=== PATIENT | male | born 1970 | race Caucasian/White ===

== ENCOUNTER 2025-01-11 13:56 | Inpatient (IN) | payer MEDICAID, OTHER ==
[~2025-01-11] VITALS: Ht 157.5 cm; Wt 88.9 kg
--- NOTE | 2025-01-11 14:39 | ED.PDOC ---
General HPI Comments Vitals Temperature: Respiratory rate: SpO2: Heart rate: Blood pressure: Past Medical History: Negative Past Surgical History: Negative Social History: Negative Estuardo: r abd, r flank n/v HPI: Poor Historian. REVIEW OF SYSTEMS: CONSTITUTIONAL: Denies acute: fever, diaphoresis, chills, generalized weakness. HEAD: Denies acute: headache, photophobia Eyes: Denies acute: Double vision, vision loss, eye pain, eye discharge. EARS: Denies acute: tinnitus, hearing loss, ear discharge, ear pain, THROAT: Denies acute: sore throat, swelling, difficulty swallowing , pain with swallowing, change in voice. NECK: Denies acute: neck pain, neck swelling, stiff neck. HEART: Denies acute : chest pain, palpitations, LUNGS: Denies acute: SOB, wheezing, cough, hemoptysis ABDOMEN: Denies acute: diarrhea, melena , hematemesis, hematochezia SKIN: Denies acute: rash, redness, lesions, itchiness. EXTREMITIES: Denies acute: calf pain, numbness, tingling, weakness, denies pain in extremity. Denies acute: Low back pain. Neuro: Denies acute: focal neurological deficit, motor or sensory focal neurological deficit, tremors, seizure like activity, confusion, dizziness, change in mental status, loss of bowel or bladder function, cauda equina like symptoms. : Denies acute: dysuria, hematuria, increase in urinary frequency. PSYCH: Denies acute: hallucination, suicidal ideation, homicidal ideation. PHYSICAL EXAM: General: ----moderate to severe----acute distress, awake and alert. Head: normocephalic, atraumatic. Neck: supple, trachea is midline, no swelling. Throat: Normal phonation. Eyes:, no erythema, no purulent discharge, no proptosis, no icterus. Heart: regular rate, regular rhythm, no significant murmur appreciated. Lungs: no apparent respiratory distress, Able to speak in full sentences. No wheezing, no rhonchi, no crackles. No stridors Clear to auscultation bilaterally. Abdomen: Right sided abdominal tender to palpation, non distended, soft, no guarding, no rebound, + bowel sounds. Neuro: Awake, Alert, oriented to name, self, situation, follows commands GCS=15. Speech is normal. Skin: no petechia, no purpura, no cyanosis, non-pale, not jaundice. Lower extremities: --no - Pitting edema no deformity, no focal swelling, no calf TTP. Makes eye contact. moves all four extremities. Face: no apparent facial droop. Right CVA tenderness to percussion . ED COURSE: Time Seen by MD: 14:30 Reviewed notes: Nurses Notes, Medications, Allergies Allergies: Coded Allergies: NO KNOWN ALLERGIES (Unverified , 01/11/25) Information Source: Patient Mode of Arrival: Ambulatory Past Medical History PAST MEDICAL HISTORY: Denies Surgical History: Denies all surgeries Family History Family History: Reviewed,noncontributory to illness, Unknown Social History Smoker: Non-Smoker Alcohol: Denies ETOH Use Drugs: Denies Drug Use Lives In: Home Was a procedure done? Was a procedure done?: No Differential Diagnosis Kidney stone (Female): Other (DDX include but not limited to diverticulitis, colitis, gastroenteritis, acute abdomen, SBO, enteritis, constipation, volvulus, appendicitis, Gallbladder disease, choledocolithiasis, ascending cholangitis, pancreatitis, intraAbdominal mass/neoplasm, hepatitis, UTI, pylonephritis, kidney stone, aneurysm, dissection, Inflammatory bowel disease, gastroparesis, ischemic bowel.), N/A Kidney stone (Male): Other (Flank Pain;DDX include Nephrolethiasis, obstructive uropathy, kidney cancer, renal infarct, intraabdominal neoplasm, lower lobe pneumonia, retroperitoneal hemorrhage, pancreatitis, aneurysm, dissection, musculoskeletal, rib contusion/trauma, hematoma, PYLONEPHRITIS, muscle strain, spinal disease. ) X-Ray, Labs, Meds, VS Vital Signs Date Time Temp Pulse Resp B/P (MAP) Pulse Ox O2 Delivery O2 Flow Rate FiO2 01/11/25 20:10 98.4 71 18 140/68 (92) 99 98.4 01/11/25 17:40 117/77 01/11/25 16:30 98.7 89 18 117/77 (90) 97 98.7 01/11/25 16:30 Room Air* 0 21 01/11/25 14:46 97.4 57 19 107/77 (87) 97 97.4 Lab Test 01/11/25 18:10 01/11/25 17:17 01/11/25 16:18 01/11/25 14:51 Range/Units White Blood Count 18.0 H 17.1 H 4.4-10.8 10^3/uL Red Blood Count 5.79 5.86 4.5-5.90 10^6/uL Hemoglobin 17.1 17.2 13.5-17.5 g/dL Hematocrit 50.5 50.0 41.0-53.0 % Mean Corpuscular Volume 87.1 85.2 80.0-100.0 fL Mean Corpuscular Hemoglobin 29.4 29.3 28.0-32.0 pg Mean Corpuscular Hemoglobin Concent 33.8 34.3 32.0-36.0 g/dL Red Cell Distribution Width 14.0 13.9 11.8-14.3 % Platelet Count 284 298 140-450 10^3/uL Mean Platelet Volume 8.5 8.9 6.9-10.8 fL Neutrophils (%) (Auto) 90.5 H 91.6 H 37.0-80.0 % Lymphocytes (%) (Auto) 6.2 L 5.5 L 10.0-50.0 % Monocytes (%) (Auto) 3.0 2.5 0.0-12.0 % Eosinophils (%) (Auto) 0.0 0.0 0.0-7.0 % Basophils (%) (Auto) 0.3 0.4 0.0-2.0 % Neutrophils # (Auto) 16.3 H 15.6 H 1.6-8.6 10 ^3/uL Lymphocytes # (Auto) 1.1 0.9 0.4-5.4 10 ^3/uL Monocytes # (Auto) 0.5 0.4 0-1.3 10 ^3/uL Eosinophils # (Auto) 0 0 0-0.8 10 ^3/uL Basophils # (Auto) 0.1 0.1 0-0.2 10 ^3/uL Nucleated Red Blood Cells 0.0 0.1 % B-Type Natriuretic Peptide 118.63 0-100 pg/mL Lactic Acid Level 3.9 *H 4.7 *H 0.4-2.0 mmol/L Urine Color Yellow Yellow Urine Clarity Clear Clear Urine pH 7.5 5.0-9.0 Urine Specific [place] 1.024 1.001-1.035 Urine Protein Trace H Negative Urine Ketones 2+ H Negative Urine Blood Trace H Negative /uL Urine Nitrite Negative Negative Urine Bilirubin Negative Negative Urine Urobilinogen Normal Negative mg/dL Urine Leukocyte Esterase Negative Negative /uL Urine RBC 6 0 - 3 /hpf Urine Microscopic WBC 1 0-3 /HPF Urine Squamous Epithelial Cells None seen <5 /hpf Urine Bacteria None seen None Seen /hpf Urine Mucus Few None Seen Urine Glucose Normal Normal mg/dL Sodium Level 140 136-145 mmol/L Potassium Level 3.9 3.5-5.1 mmol/L Chloride Level 104 98-107 mmol/L Carbon Dioxide Level 21 20-31 mmol/L Anion Gap 15 5-15 Blood Urea Nitrogen 13 9-23 mg/dL Creatinine 1.16 0.700-1.30 mg/dL Glomerular Filtration Rate Calc 75 >90 mL/min BUN/Creatinine Ratio 11.2 10.0-20.0 Serum Glucose 145 H 74-106 mg/dL Calcium Level 9.8 8.7-10.4 mg/dL Total Bilirubin 0.7 0.2-1.0 mg/dL Aspartate Amino Transferase (AST) 19 13-40 U/L Alanine Aminotransferase (ALT) 34 7-40 U/L Alkaline Phosphatase 74 46-116 U/L Troponin I High Sensitivity < 3 L </=54 ng/L Total Protein 7.2 5.7-8.2 g/dL Albumin 4.5 3.2-4.8 g/dL Lipase 89 H 12-53 U/L Current Medications Medications (Trade) Dose Ordered Sig/Florentino Route Start Time Stop Time Status Last Admin Sodium Chloride 1,000 ml @ 1,000 mls/hr Q1H ONCE IV 01/11/25 14:30 01/11/25 15:29 DC 01/11/25 17:51 Ondansetron HCl (Zofran) 8 mg ONCE ONCE IV 01/11/25 14:30 01/11/25 14:31 DC 01/11/25 16:43 Fentanyl Citrate 100 mcg ONCE ONCE IV 01/11/25 14:30 01/11/25 14:31 DC 01/11/25 17:40 Piperacillin Sod/ Tazobactam Sod 100 ml @ 100 mls/hr ONCE ONCE IV 01/11/25 15:45 01/11/25 16:44 DC 01/11/25 16:40 Sodium Chloride 1,000 ml @ 1,000 mls/hr Q1H ONCE IV 01/11/25 15:45 01/11/25 16:44 DC 01/11/25 16:[address] [address] Ph: [phone] DIAGNOSTIC IMAGING Diagnostic Imaging Report : [id number] Signed PATIENT: MARCUS CHESTERACCT: [id number] UNIT: [id number] : 1970 LOC: ER ROOM / BED: / AGE / SEX: 54 / M ADM STATUS: REG ER SERVICE 142 ORDERING PHYSICIAN: GUME COOK DO PROCEDURE(s): ABPL - CT AB PEL WO CON-NO ORAL OR IV REASON: abd pain ORDER NUMBER(s): [id number], ACCESSION NUMBER(s): [id number] CT ABDOMEN AND PELVIS WITHOUT CONTRAST CLINICAL HISTORY: abd pain TECHNIQUE: Multiple contiguous axial images of the abdomen and pelvis without intravenous contrast. The images were reformatted degenerate coronal and sagittal reconstructions. All CT scans at this medical facility are performed using dose modulation techniques as appropriate to a performed exam including the following:Automated exposure control was utilized; adjustment of the MA and/or KV according to patient size; and use of iterative reconstruction technique. Radiation Dose Information: CT Dose: CTDI volume is 17.14 mGy. Dose-length product is 927.97 mGy*cm Comparison: None FINDINGS: Evaluation of the abdomen and pelvis is limited without intravenous contrast. The liver demonstrates decreased attenuation compatible with hepatic steatosis. The gallbladder, pancreas, kidneys, adrenal glands, and spleen appear within normal limits. There is no gross evidence of abdominal lymphadenopathy. There is no free fluid or free air. The stomach grossly appears unremarkable. The small and large bowel loops demonstrate normal caliber and distribution. A normal appearing appendix is seen in the right lower quadrant abdomen. The distal colon is mostly decompressed. The abdominal aorta and IVC appear within normal limits. The bladder appears unremarkable for the degree of distention. Pelvic organ appears within normal limits. There is no gross evidence of a pelvic mass. There is no free fluid collection. Lung bases are clear. There is no acute osseous abnormality. IMPRESSION: 1. There is no acute process in the abdomen and pelvis. 2. Hepatic steatosis. HS:Y ATED BY: PERRY BRAY MD DICTATED DATE/TIME: 01/11/251532 SIGNED BY: PERRY BRAY MD SIGNED DATE/TIME: 01/11/251532 CC: Time of 1ST Reevaluation: 15:00 Reevaluation 1ST: Unchanged Patient Education/Counseling: Diagnosis, Treatment, Prognosis Family Education/Counseling: No Family Present Comments Patient presented with the above HPI.---abdominal pain flank pain---workup was initiated. patient was found with the above mentioned diagnosis. the following medications were ordered: please refer to order lists of meds and tests obtained by myself Dr. Cook. Patient ED course and VS have been stabilized. Patient has been reassessed in the ED and remained in a stable condition. Pertinent incidental findings were discussed with the patient and/or family. Patient/family voices understanding and is agreeable with plan. Patient has been observed in the ED adequate length of time to insure improvement/stability. Escalation of care considered: Consideration of escalation to observation or admission Patient was started on empiric antibiotics and fluids. Patient was ADMITTED to the medicine team for further evaluation and treatment of their presentation. All the reports of any imaging studies that were ordered by myself were reviewed by myself. Departure 1 Departure Time of Disposition: 15:43 Impression: Primary Impression: Sepsis Additional Impressions: Abdominal pain Leukocytosis Disposition: ADMITTED INPATIENT Admit to: [facility] Condition: Guarded Discharged With: Self Critical Care Note Critical Care Time?: Yes (35 min-critical care time only) Heart Score Heart Score: Heart Score Response (Comments) Value History Slightly Suspicious 0 EKG Normal 0 Age 45-64 1 Risk Factors No known risk factors 0 Troponin Normal limit 0 Total 1 I personally scribed for GUME COOK DO ([email or web address]) on 01/11/25 at 14:39. Electronically submitted by Shabbir Mccormack ([email or web address]). I personally scribed for GUME COOK DO ([email or web address]) on 01/11/25 at 15:40. Electronically submitted by Shabbir Mccormack ([email or web address]). GUME COOK DO January 11, 2025 14:39
[2025-01-11 15:03] LABS: Basophils # (auto) 0.1 10 ^3/uL (0-0.2); Basophils % (auto) 0.4 % (0.0-2.0); Eosinophils # (auto) 0 10 ^3/uL (0-0.8); Hemoglobin 17.2 g/dL (13.5-17.5); Lymphocytes # (auto) 0.9 10 ^3/uL (0.4-5.4); Lymphocytes % (auto) 5.5 % (10.0-50.0); Mean Corpuscular Hemoglobin 29.3 pg (28.0-32.0); Mean Corpuscular Hgb Conc. 34.3 g/dL (32.0-36.0); Mean Corpuscular Volume 85.2 fL (80.0-100.0); Monocytes # (auto) 0.4 10 ^3/uL (0-1.3); Monocytes % (auto) 2.5 % (0.0-12.0); Neutrophils # (auto) 15.6 10 ^3/uL (1.6-8.6); Neutrophils % (auto) 91.6 % (37.0-80.0); Nucleated Red Blood Cells % 0.1 %; Platelet Count (auto) 298 10^3/uL (140-450); Red Blood Cells 5.86 10^6/uL (4.5-5.90); Red Cell Distribution Width 13.9 % (11.8-14.3); White Blood Cell 17.1 10^3/uL (4.4-10.8)
[2025-01-11 15:22] LABS: Alanine Aminotransferase 34 U/L (7-40); Albumin 4.5 g/dL (3.2-4.8); Alkaline Phosphatase 74 U/L (46-116); Anion Gap 15 (5-15); Aspartate Aminotransferase 19 U/L (13-40); BUN/Creatinine Ratio 11.2 (10.0-20.0); Blood Urea Nitrogen 13 mg/dL (9-23); Calcium 9.8 mg/dL (8.7-10.4); Carbon Dioxide 21 mmol/L (20-31); Chloride 104 mmol/L (98-107); Potassium 3.9 mmol/L (3.5-5.1); Sodium 140 mmol/L (136-145); Total Protein 7.2 g/dL (5.7-8.2)
[2025-01-11 15:23] LABS: Bilirubin, Total 0.7 mg/dL (0.2-1.0); Glucose 145 mg/dL (74-106); Lipase 87 U/L (12-53)
--- NOTE | 2025-01-11 15:36 | DVH ---
CT ABDOMEN AND PELVIS WITHOUT CONTRAST CLINICAL HISTORY: abd pain TECHNIQUE: Multiple contiguous axial images of the abdomen and pelvis without intravenous contrast. T he images were reformatted degenerate coronal and sagittal reconstructions. All CT scans at this medical facility are performed using dose modulation techniques as appropriate t o a performed exam including the following:Automated exposure control was utilized; adjustment of the MA and/or KV according to patient size; and use of iterative reconstruction technique. Radiation Dose Information: CT Dose: CTDI volume is 17.14 mGy. Dose-length product is 927.97 mGy*cm Comparison: None FINDINGS: Evaluation of the abdomen and pelvis is limited without intravenous contrast. The liver demonstrates decreased attenuation compatible with hepatic steatosis. The gallbladder, p ancreas, kidneys, adrenal glands, and spleen appear within normal limits. There is no gross evidence of abdominal lymphadenopathy. There is no free fluid or free air. The stomach grossly appears unremarkable. The small and large bowel loops demonstrate normal caliber and distribution. A normal appearing appendix is seen in the right lower quadrant abdomen. The dista l colon is mostly decompressed. The abdominal aorta and IVC appear within normal limits. The bladder appears unremarkable for the degree of distention. Pelvic organ appears within normal michael its. There is no gross evidence of a pelvic mass. There is no free fluid collection. Lung bases are clear. There is no acute osseous abnormality. IMPRESSION: 1. There is no acute process in the abdomen and pelvis. 2. Hepatic steatosis. HS:Y
[2025-01-11 15:41] LABS: Lactic Acid w/Reflex 4.7 mmol/L (0.4-2.0)
[2025-01-11 16:20] LABS: Urine Bacteria None Seen /hpf (None Seen)
[2025-01-11 16:34] LABS: Urine Blood TRACE /uL (Negative); Urine Clarity Clear (Clear); Urine Color Yellow (Yellow); Urine Mucus FEW (None Seen); Urine Protein, UAD TRACE (Negative); Urine Specific Gravity 1.024 (1.001-1.035); Urine Squamous Epithelial Cell None Seen /hpf (<5); Urine Urobilinogen Normal (Negative); Urine WBC 1 /HPF (0-3); Urine pH 7.5 (5.0-9.0)
[2025-01-11] MEDS: PIPERACILLIN-TAZOB 3.375GM 100 ML IV ONE (16:40)
[2025-01-11] MEDS: SODIUM CHLORIDE 0.9% 1,000 ML IV ONE ×3 (16:40→22:00)
[2025-01-11] MEDS: ONDANSETRON HCL 4 MG/2 ML VIAL IV ONE (16:43)
[2025-01-11] MEDS: fentaNYL CITRATE 100 MCG/2 ML VL IV ONE (17:40)
[2025-01-11 18:29] LABS: Basophils # (auto) 0.1 10 ^3/uL (0-0.2); Basophils % (auto) 0.3 % (0.0-2.0); Eosinophils # (auto) 0 10 ^3/uL (0-0.8); Hematocrit 50.5 % (41.0-53.0); Hemoglobin 17.1 g/dL (13.5-17.5); Lymphocytes # (auto) 1.1 10 ^3/uL (0.4-5.4); Lymphocytes % (auto) 6.2 % (10.0-50.0); Mean Corpuscular Hemoglobin 29.4 pg (28.0-32.0); Mean Corpuscular Hgb Conc. 33.8 g/dL (32.0-36.0); Mean Corpuscular Volume 87.1 fL (80.0-100.0); Monocytes # (auto) 0.5 10 ^3/uL (0-1.3); Neutrophils # (auto) 16.3 10 ^3/uL (1.6-8.6); Neutrophils % (auto) 90.5 % (37.0-80.0); Platelet Count (auto) 284 10^3/uL (140-450); Red Blood Cells 5.79 10^6/uL (4.5-5.90)
[2025-01-11] MEDS ORDERED: ONDANSETRON HCL 4 MG/2 ML VIAL IV PRN (21:00)
[2025-01-11 21:29] VITALS: BP 154/82; PULSE 63; PULSE 64; RESP 18; RESP 24; TEMP 98.2; O2SAT 97; O2SAT 99
[2025-01-11] MEDS: D5W/SOD CHL 0.45% 1,000 ML IV SCH (22:01)
--- NOTE | 2025-01-11 22:07 | DVH ---
INDICATION: upper right quadrant abdominal pain TECHNIQUE: Ultrasound liver. Multiple real-time sonographic images of the abdomen were obtained. COMPARISON: None FINDINGS: Hepatic parenchyma testing Steatosis. The liver measures 17.45 cm. No intrahepatic biliar y ductal dilatation is noted. The gallbladder wall measures 0.36 cm and is unremarkable. No gallstones or sludge is seen. The co mmon duct measures 0.42 cm and is unremarkable. No pericholecystic fluid is noted. Negative sonograp hic Carmona's sign. The right kidney measures 11.11 cm. No hydronephrosis. The pancreas is not well visualized due to obscuration from bowel gas. The visualized portions of the IVC and aorta are grossly unremarkable. IMPRESSION: 1. Hepatic steatosis with the liver measuring 17.45 cm. 2. Gallbladder no cholelithiasis with mild gallbladder wall thickening. HS:Y
--- NOTE | 2025-01-11 22:23 | DVH ---
CHEST RADIOGRAPH Indication: dyspnea Technique: Single frontal view of the chest was obtained Comparison: None FINDINGS: Lines and Tubes: None Lungs: Diffuse bilateral interstitial prominence may represent infiltrate or chronic disease. There are no prior studies for comparison. Pleura: No effusion. No pneumothorax. Cardiomediastinal contours: Unremarkable Bones: No acute osseous abnormality. IMPRESSION: 1. Diffuse bilateral interstitial disease. Acute versus chronic disease are both in the differential.
[2025-01-11] MEDS: KETOROLAC TROMETH 30 MG/ML 1ML VIAL IV PRN (22:33)
[2025-01-11] MEDS: PIPERACILLIN-TAZOB 3.375GM 100 ML IV SCH (23:01)
[2025-01-12] VITALS (7 sets, daily range): BP systolic 106–132; BP diastolic 63–75; PULSE 55–78; RESP 16–24; TEMP 97.7–99.3; O2SAT 95–97
[2025-01-12 00:29] LABS: Cannabinoid Screen, Urine Pos (NEGATIVE); Opiate Scree,Urine Neg (NEGATIVE); Phencyclidine Screen, Urine Neg (NEGATIVE)
[2025-01-12 00:31] LABS: COVID19 ANTIGEN SOFIA FIA NEGATIVE (NEGATIVE); Rapid Influenza A Negative (Negative); Rapid Influenza B Negative (Negative)
[2025-01-12] MEDS: IOHEXOL 300 MG/ML 100ML BOTTLE IJ ONE (00:57)
--- NOTE | 2025-01-12 01:24 | DVH ---
Exam: CT CT AB PEL WITH IV CON ONLY History: abdominal pain COMPARISON: CT abdomen/pelvis 01/11/25 Technique: Multidetector spiral CT of the abdomen and pelvis was performed from lung bases to pubic s ymphysis. Intravenous contrast was administered during this examination. Portal venous imaging was obtained. Axial, coronal and sagittal multiplanar reformats were performed by the technologist on a separate workstation. Radiation Dose : 1. Abdomen/Pelvis: CTDIvol mGy, DLP mGy*cm. CONTRAST: Type of contrast: Contrast injected: ml Contrast ingested: ml Findings: Lung Bases: No abnormality demonstrated. Liver: Liver demonstrates diffuse decreased density consistent with fatty infiltration. No focal les ions identified. Gallbladder and Biliary Tree: No abnormality demonstrated. Spleen: No abnormality demonstrated. Pancreas: No abnormality demonstrated. Adrenal Glands: No abnormality demonstrated. Kidneys: There is a punctate calculus measuring 2 mm at the right UVJ with mild right-sided hydroure teronephrosis and stranding around the right kidney. Left kidney appears unremarkable. Bladder: Unremarkable Bowel: Stomach appears grossly unremarkable. No abnormally dilated or thick-walled loops of large or small bowel noted. Appendix appears unremarkable. Ascites: Absent Lymphadenopathy: No evidence of lymphadenopathy. Abdominal Wall and Mesentery: Unremarkable. Vasculature: Unremarkable. Pelvic Organs: Unremarkable Musculoskeletal: No bony lesions or fracture. IMPRESSION: Punctate 2 mm calculus at the right UVJ with mild right-sided hydroureteronephrosis and stranding ar ound the right kidney. Hepatic steatosis. Radiation optimization: All CT scans at this facility use at least one of these dose optimization oscar hniques: automated exposure control mA and/or kV adjustment per patient size (includes targeted exam s where dose is matched to clinical indication) or iterative reconstruction.
[2025-01-12 01:57] LABS: Amphetamine Screen, Urine Neg (NEGATIVE); Barbiturate Scree,Urine Neg (NEGATIVE); Benzodiazephine Screen, Urine Neg (NEGATIVE); Cocaine Screen, Urine Neg (NEGATIVE)
--- NOTE | 2025-01-12 02:20 | DVHHP2 ---
History of Present Illness Reason for Visit: abdominal pain History of Present Illness This is a 54-year-old male with no known past medical history presenting with acute right flank pain that began on January 11 around 8:00 a.m. The pain is described as sharp and radiates to the right upper quadrant of the abdomen. He also reports one episode of nausea and vomiting. Denies dysuria, hematuria, fevers, chills, diarrhea, or changes in bowel movements. No recent sick contacts. Denies alcohol use. Heavy smoker. UDS CBD positive. ROS: Constitutional: Negative for fever, chills GI: Nausea, vomiting; no diarrhea or constipation : Flank pain; denies dysuria or hematuria Respiratory: No SOB CV: No chest pain or palpitations Neuro: No dizziness or weakness Review of Systems Allergies: Coded Allergies: NO KNOWN ALLERGIES (Unverified , 01/11/25) Medications Current Medications Medications Dose Ordered Sig/Florentino Route Start Time Stop Time Status Last Admin Dose Admin Ondansetron HCl 4 mg Q4HP PRN IV 01/11/25 21:00 Enoxaparin Sodium 40 mg DAILY SC 01/12/25 10:00 Piperacillin Sod/ Tazobactam Sod 100 ml @ 25 mls/hr Q8HR IV 01/11/25 22:00 01/11/25 23:01 25 MLS/HR Ketorolac Tromethamine 15 mg Q6HPRN PRN IV 01/11/25 21:00 01/16/25 20:59 01/11/25 22:33 15 MG Tamsulosin HCl 0.4 mg QPM PO 01/12/25 02:15 Exam Vital Signs Vital Signs Date Time Temp Pulse Resp B/P (MAP) Pulse Ox O2 Delivery O2 Flow Rate FiO2 01/12/25 00:58 98.1 71 16 114/63 (80) 95 98.1 01/11/25 16:30 Room Air* 0 21 Exam General: Alert, no acute distress Abdomen: Soft, mild tenderness in right flank and right upper quadrant. No guarding or rebound. No CVA tenderness Cardiopulmonary: Normal S1/S2, clear lungs Neuro: Alert and oriented, no focal deficits Skin: No rash Labs/Xrays Labs Test 01/11/25 23:55 01/11/25 18:10 01/11/25 17:17 01/11/25 16:18 Range/Units Influenza Type A Antigen Negative Negative Influenza Type B Antigen Negative Negative SARS-CoV-2 Antigen (Rapid) Negative NEGATIVE White Blood Count 18.0 H 4.4-10.8 10^3/uL Red Blood Count 5.79 4.5-5.90 10^6/uL Hemoglobin 17.1 13.5-17.5 g/dL Hematocrit 50.5 41.0-53.0 % Mean Corpuscular Volume 87.1 80.0-100.0 fL Mean Corpuscular Hemoglobin 29.4 28.0-32.0 pg Mean Corpuscular Hemoglobin Concent 33.8 32.0-36.0 g/dL Red Cell Distribution Width 14.0 11.8-14.3 % Platelet Count 284 140-450 10^3/uL Mean Platelet Volume 8.5 6.9-10.8 fL Neutrophils (%) (Auto) 90.5 H 37.0-80.0 % Lymphocytes (%) (Auto) 6.2 L 10.0-50.0 % Monocytes (%) (Auto) 3.0 0.0-12.0 % Eosinophils (%) (Auto) 0.0 0.0-7.0 % Basophils (%) (Auto) 0.3 0.0-2.0 % Neutrophils # (Auto) 16.3 H 1.6-8.6 10 ^3/uL Lymphocytes # (Auto) 1.1 0.4-5.4 10 ^3/uL Monocytes # (Auto) 0.5 0-1.3 10 ^3/uL Eosinophils # (Auto) 0 0-0.8 10 ^3/uL Basophils # (Auto) 0.1 0-0.2 10 ^3/uL Nucleated Red Blood Cells 0.0 % B-Type Natriuretic Peptide 118.63 0-100 pg/mL Lactic Acid Level 3.9 *H 0.4-2.0 mmol/L Urine Color Yellow Yellow Urine Clarity Clear Clear Urine pH 7.5 5.0-9.0 Urine Specific [place] 1.024 1.001-1.035 Urine Protein Trace H Negative Urine Ketones 2+ H Negative Urine Blood Trace H Negative /uL Urine Nitrite Negative Negative Urine Bilirubin Negative Negative Urine Urobilinogen Normal Negative mg/dL Urine Leukocyte Esterase Negative Negative /uL Urine RBC 6 0 - 3 /hpf Urine Microscopic WBC 1 0-3 /HPF Urine Squamous Epithelial Cells None seen <5 /hpf Urine Bacteria None seen None Seen /hpf Urine Mucus Few None Seen Urine Glucose Normal Normal mg/dL Urine Opiates Screen Neg NEGATIVE Urine Fentanyl Screen Neg NEGATIVE Urine Barbiturates Screen Neg NEGATIVE Urine Phencyclidine Screen Neg NEGATIVE Urine Amphetamines Screen Neg NEGATIVE Urine Benzodiazepines Screen Neg NEGATIVE Urine Cocaine Screen Neg NEGATIVE Urine Cannabinoids Screen Pos NEGATIVE Test 01/11/25 14:51 Range/Units Sodium Level 140 136-145 mmol/L Potassium Level 3.9 3.5-5.1 mmol/L Chloride Level 104 98-107 mmol/L Carbon Dioxide Level 21 20-31 mmol/L Anion Gap 15 5-15 Blood Urea Nitrogen 13 9-23 mg/dL Creatinine 1.16 0.700-1.30 mg/dL Glomerular Filtration Rate Calc 75 >90 mL/min BUN/Creatinine Ratio 11.2 10.0-20.0 Serum Glucose 145 H 74-106 mg/dL Calcium Level 9.8 8.7-10.4 mg/dL Total Bilirubin 0.7 0.2-1.0 mg/dL Aspartate Amino Transferase (AST) 19 13-40 U/L Alanine Aminotransferase (ALT) 34 7-40 U/L Alkaline Phosphatase 74 46-116 U/L Troponin I High Sensitivity < 3 L </=54 ng/L Total Protein 7.2 5.7-8.2 g/dL Albumin 4.5 3.2-4.8 g/dL Lipase 89 H 12-53 U/L Assessment/Plan Assessment/Plan #Sepsis due right mild hydronephrosis #Punctate 2 mm calculus at the right UVJ with mild right-sided hydroureteronephrosis and stranding around the right kidney. #Heavy smoker #CBD use #Hepatic steatosis Admit NPO except for meds Med surg IV fluids given 3LT Ketorolac PRN Tamsulosin Enoxaparin SC Case discussed with Dr Sinha Full code Plan discussed with: Patient, Other (rn) My Orders Orders - LONNIE TEJEDA RESIDENT Procedure Category Date Status Time Admit ADMIT 01/11/25 Transmitted 20:50 Code Status CODE 01/11/25 Transmitted 20:50 Vital Signs VIVIANA 01/11/25 In Process 20:50 Review Orders With VIVIANA 01/11/25 In Process Adm. 20:50 Npo (Nothing By DIET 01/12/25 Transmitted Mouth) Diet Breakfast Notify Md Of Changes VIVIANA 01/11/25 In Process From Base 20:50 Advance Directive VIVIANA 01/11/25 In Process 20:50 Patient Condition ORDERS 01/11/25 Transmitted 20:50 Allergies VIVIANA 01/11/25 In Process 20:50 Ondansetron Hcl PHA 01/11/25 In Process (Zofran) 21:00 Enoxaparin Sodium PHA 01/12/25 In Process (Lovenox) 10:00 Piperacillin-Tazob PHA 01/11/25 In Process 3.375gm (Zosyn 3.375g 22:00 Ketorolac Injection PHA 01/11/25 In Process (Toradol Injection) 21:00 LIVER US 01/11/25 Resulted 20:57 Chest Xray 1 View XY 01/11/25 Resulted 21:42 Ct Ab Pel With Iv Con CT 01/12/25 Resulted Only 00:33 Tamsulosin PHA 01/12/25 In Process Hydrochloride (Flomax) 02:15 Date of Service: January 11, 2025 Billing Provider: NOELLE SINHA MD Common Visit Codes: [id number] INP/OBS CARE (HIGH) Secondary Visit Codes: [id number] CARE PLAN 30 MINUTES LONNIE TEJEDA RESIDENT January 12, 2025 02:20
[2025-01-12] MEDS: TAMSULOSIN HYDROCHLORIDE 0.4 MG CAP PO SCH (03:10)
[2025-01-12 06:52] LABS: Basophils # (auto) 0.1 10 ^3/uL (0-0.2); Basophils % (auto) 0.4 % (0.0-2.0); Eosinophils # (auto) 0 10 ^3/uL (0-0.8); Eosinophils % (auto) 0.2 % (0.0-7.0); Hematocrit 44.3 % (41.0-53.0); Hemoglobin 15.2 g/dL (13.5-17.5); Lymphocytes % (auto) 14.8 % (10.0-50.0); Mean Corpuscular Hemoglobin 29.6 pg (28.0-32.0); Mean Corpuscular Hgb Conc. 34.4 g/dL (32.0-36.0); Monocytes # (auto) 0.8 10 ^3/uL (0-1.3); Monocytes % (auto) 6.2 % (0.0-12.0); Neutrophils # (auto) 10.5 10 ^3/uL (1.6-8.6); Neutrophils % (auto) 78.4 % (37.0-80.0); Nucleated Red Blood Cells % 0.1 %; Platelet Count (auto) 244 10^3/uL (140-450); Red Blood Cells 5.15 10^6/uL (4.5-5.90); Red Cell Distribution Width 14.1 % (11.8-14.3); White Blood Cell 13.4 10^3/uL (4.4-10.8)
[2025-01-12 07:03] LABS: Alanine Aminotransferase 22 U/L (7-40); Albumin 3.7 g/dL (3.2-4.8); Alkaline Phosphatase 58 U/L (46-116); Anion Gap 10 (5-15); Aspartate Aminotransferase 19 U/L (13-40); BUN/Creatinine Ratio 8.4 (10.0-20.0); Blood Urea Nitrogen 12 mg/dL (9-23); Carbon Dioxide 24 mmol/L (20-31); Chloride 105 mmol/L (98-107); Potassium 3.9 mmol/L (3.5-5.1); Sodium 139 mmol/L (136-145); Total Protein 6.1 g/dL (5.7-8.2)
[2025-01-12 07:04] LABS: Bilirubin, Total 0.8 mg/dL (0.2-1.0)
[2025-01-12 07:10] LABS: Glucose 116 mg/dL (74-106)
[2025-01-12 07:15] LABS: Lactic Acid w/Reflex 2.2 mmol/L (0.4-2.0)
[2025-01-12] MEDS: ENOXAPARIN SOD 40 MG/0.4 ML SYRINGE SC SCH (08:48)
[2025-01-12] MEDS: MANNITOL FTV 25% 12.5 GM/50 ML 50 ML IV ONE (08:49)
--- NOTE | 2025-01-12 11:39 | DVH ---
XY CHEST XRAY 1 VIEW, HISTORY: dyspnea COMPARISON: XY CHEST XRAY 1 VIEW on DOS: 01/11/25 XY CHEST XRAY 1 VIEW on DOS: 01/11/25 TECHNICAL DATA: 1 view of the chest was obtained. FINDINGS: Lines and tubes: None Cardiomediastinal silhouette: normal Pulmonary vasculature: normal Lung expansion: normal Lung airspace: normal Lung interstitium: normal Pleura: normal Pneumothorax: no Bones: Unremarkable Other: no IMPRESSION: No acute intrathoracic abnormality.
[2025-01-13 01:00] VITALS: BP 124/54; PULSE 65; RESP 18; TEMP 99; O2SAT 97
[2025-01-13 05:00] VITALS: BP 137/87; PULSE 72; RESP 18; TEMP 98.6; O2SAT 96
[2025-01-13 09:29] VITALS: BP 122/79; PULSE 68; RESP 19; TEMP 98.6; O2SAT 99
--- NOTE | 2025-01-13 09:41 | MEDREC ---
[facility] Intervention Section I [facility] Intervention: Review courses of therapy (PLEASE CONSIDER DE-ESCALATION / DISCONTINUATION ANTIBIOTIC IN ABSENCE OF BACTERIAL INFECTION ) CARLOS FAY PHARMACIST January 13, 2025 09:41
[2025-01-13 13:03] VITALS: BP 143/84; PULSE 69; RESP 19; TEMP 99; O2SAT 96
[2025-01-13 16:30] VITALS: BP 155/96; PULSE 73; RESP 18; TEMP 99; O2SAT 96
--- NOTE | 2025-01-13 17:56 | DVHPN2 ---
Subjective in bed resting Changes from previous H/P or p: No Changes Objective Vitals Vital Signs Date Time Temp Pulse Resp B/P (MAP) Pulse Ox O2 Delivery O2 Flow Rate FiO2 01/13/25 16:30 99.0 73 18 155/96 (115) 96 99.0 01/13/25 08:00 Room Air* 0 21 Intake/Output Intake and Output 01/13/25 07:00 Intake Total 944.16 ml Output Total 2100 ml Balance -1155.84 ml Intake Oral 594 ml IV Total 350.16 ml Output Urine Total 2100 ml # Voids 2 # Bowel Movements 3 General Appearance: Alert, Oriented X3 Lungs: Clear to auscultation Cardiovascular: Regular rate, Normal S1, Normal S2 Abdomen: Normal bowel sounds Medications Current Medications Medications Dose Ordered Sig/Florentino Route Start Time Stop Time Status Last Admin Dose Admin Ondansetron HCl 4 mg Q4HP PRN IV 01/11/25 21:00 Enoxaparin Sodium 40 mg DAILY SC 01/12/25 10:00 01/13/25 10:20 40 MG Piperacillin Sod/ Tazobactam Sod 100 ml @ 25 mls/hr Q8HR IV 01/11/25 22:00 01/13/25 14:40 25 MLS/HR Ketorolac Tromethamine 15 mg Q6HPRN PRN IV 01/11/25 21:00 01/16/25 20:59 01/13/25 00:29 15 MG Tamsulosin HCl 0.4 mg QPM PO 01/12/25 02:15 01/13/25 17:49 0.4 MG Laboratory Results Laboratory Tests 01/12/25 06:23 Urinalysis Test 01/11/25 16:18 Urine Color Yellow (Yellow) Urine Clarity Clear (Clear) Urine pH 7.5 (5.0-9.0) Urine Specific [place] 1.024 (1.001-1.035) Urine Protein Trace (Negative) H Urine Ketones 2+ (Negative) H Urine Blood Trace /uL (Negative) H Urine Nitrite Negative (Negative) Urine Bilirubin Negative (Negative) Urine Urobilinogen Normal mg/dL (Negative) Urine Leukocyte Esterase Negative /uL (Negative) Urine RBC 6 /hpf (0 - 3) Urine Microscopic WBC 1 /HPF (0-3) Urine Squamous Epithelial Cells None seen /hpf (<5) Urine Bacteria None seen /hpf (None Seen) Urine Mucus Few (None Seen) Urine Glucose Normal mg/dL (Normal) Microbiology Microbiology Date/Time Source Procedure Growth Status 01/12/25 07:55 Voided Urine Urine Culture - Preliminary Resulted 01/11/25 16:01 Blood Blood Culture - Preliminary NO GROWTH AFTER 48 HOURS OF INCUBATION. Resulted Assessment/Plan Assessment/Plan #Sepsis due right mild hydronephrosis #Punctate 2 mm calculus at the right UVJ with mild right-sided hydroureteronephrosis and stranding around the right kidney. #Heavy smoker #CBD use #Hepatic steatosis Continue IV abx monitor blood cx Urine cx pending if better can dc tomorrow Plan discussed with: Patient Date of Service: January 13, 2025 Billing Provider: FER RENTERIA MD Common Visit Codes: [id number] INP/OBS CARE(HIGH) FER RENTERIA MD January 13, 2025 17:56
[2025-01-13 21:00] VITALS: BP 173/83; PULSE 71; RESP 18; TEMP 98.7; O2SAT 98
[2025-01-13] MEDS: cloNIDine HCL 0.1 MG TAB PO ONE (22:47)
[2025-01-14] VITALS (8 sets, daily range): BP systolic 126–166; BP diastolic 83–94; PULSE 65–76; RESP 17–20; TEMP 98.2–100; O2SAT 94–98
[2025-01-14] MEDS ORDERED: CIPR500T4 PO (17:06)
--- NOTE | 2025-01-14 21:23 | DVHDS2 ---
Discharge Summary Date of Admission January 11, 2025 at 20:50 Date of Discharge: January 14, 2025 Labs/Diagnostic Data: Laboratory Results Test 01/12/25 06:23 01/11/25 23:55 01/11/25 18:10 01/11/25 16:18 White Blood Count 13.4 10^3/uL (4.4-10.8) Red Blood Count 5.15 10^6/uL (4.5-5.90) Hemoglobin 15.2 g/dL (13.5-17.5) Hematocrit 44.3 % (41.0-53.0) Mean Corpuscular Volume 86.0 fL (80.0-100.0) Mean Corpuscular Hemoglobin 29.6 pg (28.0-32.0) Mean Corpuscular Hemoglobin Concent 34.4 g/dL (32.0-36.0) Red Cell Distribution Width 14.1 % (11.8-14.3) Platelet Count 244 10^3/uL (140-450) Mean Platelet Volume 8.9 fL (6.9-10.8) Neutrophils (%) (Auto) 78.4 % (37.0-80.0) Lymphocytes (%) (Auto) 14.8 % (10.0-50.0) Monocytes (%) (Auto) 6.2 % (0.0-12.0) Eosinophils (%) (Auto) 0.2 % (0.0-7.0) Basophils (%) (Auto) 0.4 % (0.0-2.0) Neutrophils # (Auto) 10.5 10 ^3/uL (1.6-8.6) Lymphocytes # (Auto) 2.0 10 ^3/uL (0.4-5.4) Monocytes # (Auto) 0.8 10 ^3/uL (0-1.3) Eosinophils # (Auto) 0 10 ^3/uL (0-0.8) Basophils # (Auto) 0.1 10 ^3/uL (0-0.2) Nucleated Red Blood Cells 0.1 % Sodium Level 139 mmol/L (136-145) Potassium Level 3.9 mmol/L (3.5-5.1) Chloride Level 105 mmol/L (98-107) Carbon Dioxide Level 24 mmol/L (20-31) Anion Gap 10 (5-15) Blood Urea Nitrogen 12 mg/dL (9-23) Creatinine 1.43 mg/dL (0.700-1.30) Glomerular Filtration Rate Calc 58 mL/min (>90) BUN/Creatinine Ratio 8.4 (10.0-20.0) Serum Glucose 116 mg/dL (74-106) Lactic Acid Level 2.2 mmol/L (0.4-2.0) Calcium Level 9.0 mg/dL (8.7-10.4) Total Bilirubin 0.8 mg/dL (0.2-1.0) Aspartate Amino Transferase (AST) 19 U/L (13-40) Alanine Aminotransferase (ALT) 22 U/L (7-40) Alkaline Phosphatase 58 U/L (46-116) Total Protein 6.1 g/dL (5.7-8.2) Albumin 3.7 g/dL (3.2-4.8) Influenza Type A Antigen Negative (Negative) Influenza Type B Antigen Negative (Negative) SARS-CoV-2 Antigen (Rapid) Negative (NEGATIVE) B-Type Natriuretic Peptide 118.63 pg/mL (0-100) Urine Color Yellow (Yellow) Urine Clarity Clear (Clear) Urine pH 7.5 (5.0-9.0) Urine Specific [place] 1.024 (1.001-1.035) Urine Protein Trace (Negative) Urine Ketones 2+ (Negative) Urine Blood Trace /uL (Negative) Urine Nitrite Negative (Negative) Urine Bilirubin Negative (Negative) Urine Urobilinogen Normal mg/dL (Negative) Urine Leukocyte Esterase Negative /uL (Negative) Urine RBC 6 /hpf (0 - 3) Urine Microscopic WBC 1 /HPF (0-3) Urine Squamous Epithelial Cells None seen /hpf (<5) Urine Bacteria None seen /hpf (None Seen) Urine Mucus Few (None Seen) Urine Glucose Normal mg/dL (Normal) Urine Opiates Screen Neg (NEGATIVE) Urine Fentanyl Screen Neg (NEGATIVE) Urine Barbiturates Screen Neg (NEGATIVE) Urine Phencyclidine Screen Neg (NEGATIVE) Urine Amphetamines Screen Neg (NEGATIVE) Urine Benzodiazepines Screen Neg (NEGATIVE) Urine Cocaine Screen Neg (NEGATIVE) Urine Cannabinoids Screen Pos (NEGATIVE) Test 01/11/25 14:51 Troponin I High Sensitivity < 3 ng/L (</=54) Lipase 89 U/L (12-53) Other Laboratory Tests 01/12/25 06:23 Brief Hx & Hospital Course: This is a 54-year-old male with no known past medical history presenting with acute right flank pain that began on January 11 around 8:00 a.m. The pain is described as sharp and radiates to the right upper quadrant of the abdomen. He also reports one episode of nausea and vomiting. Denies dysuria, hematuria, fevers, chills, diarrhea, or changes in bowel movements. No recent sick contacts. Denies alcohol use. Heavy smoker. UDS CBD positive. Responded to IV abx Blood cx negative and urine cx also negative Condition at Discharge: Good Final Diagnosis/Problems List UTI Sepsis Discharge Disposition: Home Discharge Instruct/Medications Diet: Regular Activity: No Restrictions, As Tolerated Follow Up/Referral: PCP in 7 days Medications: ciprofloxacin Discharge Statement: "Patient was advised to return to the ER or call 911 if any headaches, dizziness, shortness of breath, chest pain, abdominal pain, bleeding, fevers, or worsening of medical condition. Patient was counseled about treatment plan, medications, possible side effects, patientverbalized understanding. All questions were answered to the best of my ability. This discharge took greater then 30 minutes in planning, reviewing documentation, counseling the patient, and discussing with other team members." ASSESSMENT ASSESSMENT Assessment UTI Sepsis Date of Service: January 14, 2025 Billing Provider: FER RENTERIA MD Common Visit Codes: 11589-CDL/OBS DISCH DAY >30min FER RENTERIA MD January 14, 2025 21:23
== END 2025-01-14 20:51 | disposition home or self-care (01) | DRG 720 ==
LOC: ER 13:56 → OVERFLOW 20:50 → WEST WING 20:57
PROVIDERS: ATTEND Emergency Medicine
DX: A41.9 Sepsis, unspecified organism (principal); N17.0 Acute kidney failure with tubular necrosis; E87.20 Acidosis, unspecified; K76.0 Fatty (change of) liver, not elsewhere classified; N13.6 Pyonephrosis; Z20.822 Contact with and (suspected) exposure to COVID-19; F17.200 Nicotine dependence, unspecified, uncomplicated; F12.90 Cannabis use, unspecified, uncomplicated
CPT/HCPCS: 36415; 71045; 74176; 74177; 76705; 80053; 80307; 81001; 83605; 83690; 83880; 84484; 85025; 87040; 87086; 87426; 87804; 96365; 96375; 99291; G0378; J1885; J2405; J2543